=== PATIENT | female | born 1990 | race Caucasian/White ===

== ENCOUNTER → 2019-01-13 | Outpatient (CLI) | payer BC ==
--- NOTE | 2019-01-15 04:49 | MR ---
EXAMINATION TYPE: MR knee RT wo con DATE OF EXAM: 01/13/2019 COMPARISON: Outside radiographs 12/18/2018 HISTORY: 28-year-old female with right knee pain TECHNIQUE: Multiplanar, multisequence imaging of the right knee is performed without IV contrast. FINDINGS: ACL, PCL, MCL, and LCL complex appear intact. The medial meniscus shows obliquely oriented signal along the posterior horn extending to the junctio n with the meniscal body. Overall diminutive appearance to the medial meniscus probably congenital va riation and can be correlated clinically. There is also horizontally oriented signal within the body of the lateral meniscus, refer to coronal series 401 image 16. Tricompartmental articular cartilage volumes are maintained. There is focal moderate irregular cartil age loss along the posterior peripheral aspect of the lateral femoral condyle measuring 8 mm wide and 11 mm AP. Extensor mechanism is intact. Trace physiologic joint fluid. No sizable Espinoza's cyst. Normal popliteal artery anatomy in muscle bulk. No suspicious bone marrow replacement. IMPRESSION: 1. Oblique tear posterior horn medial meniscus extending to the junction with the meniscal body. Over all diminutive appearance to the medial meniscus may represent congenital variation as the patient re ports no prior surgery. Clinically correlate. 2. Prominent vascular pedicle versus horizontal cleavage tear involving the body of the lateral menis cus with the latter being favored as signal extends to the femoral articular surface on one image. 3. No cruciate/collateral ligament tear.. 4. Focal moderate irregular cartilage loss posterior peripheral aspect of the lateral compartment melinda ng the femoral condyle (8 x 11 mm).
== END | disposition home or self-care (01) ==
LOC: RADMRIMAIN 07:35
PROVIDERS: ATTEND Orthopaedic Surgery
DX: S83.241A Other tear of medial meniscus, current injury, right knee, initial encounter (principal); M94.8X6 Other specified disorders of cartilage, lower leg

== ENCOUNTER → 2019-03-12 | Outpatient (CLI) | payer BC ==
[2019-03-12 10:46] LABS: Potassium 4.6 mmol/L (3.5-5.1)
[2019-03-12 11:04] LABS: Basophils # (A) 0.1 k/uL (0-0.2); Basophils % (A) 2 %; Eosinophils # (A) 0.1 k/uL (0-0.7); Eosinophils % (A) 2 %; HCT 41.7 % (34.0-46.0); Lymphocytes # (A) 1.9 k/uL (1.0-4.8); Lymphocytes % (A) 34 %; MCH 31.7 pg (25.0-35.0); MCHC 33.6 g/dL (31.0-37.0); MCV 94.6 fL (80.0-100.0); Monocytes # (A) 0.4 k/uL (0-1.0); Monocytes % (A) 7 %; Neutrophils # (A) 2.9 k/uL (1.3-7.7); Neutrophils % (A) 52 %; Platelet Count 242 k/uL (150-450); RBC 4.41 m/uL (3.80-5.40); RDW 11.9 % (11.5-15.5); WBC 5.6 k/uL (3.8-10.6)
== END | disposition home or self-care (01) ==
LOC: LABPAT 09:54
PROVIDERS: ATTEND Orthopaedic Surgery
DX: Z01.812 Encounter for preprocedural laboratory examination (principal); M23.91 Unspecified internal derangement of right knee
CPT/HCPCS: 36415; 80051; 85025

== ENCOUNTER 2019-03-21 08:21 | Day surgery (SDC) | payer BC ==
[2019-03-18 15:17] VITALS: BMI 36.6
--- NOTE | 2019-03-20 11:17 | HP ---
HISTORY AND PHYSICAL CHIEF COMPLAINT: Right knee pain. 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 She notes anterior and lateral pain along with catching and giving way. She has tried anti-inflammatories and rest without much relief. She notes she is having daily symptoms that limit her. PAST MEDICAL HISTORY: Negative. PAST SURGICAL HISTORY: Negative. CURRENT MEDICATION: Ibuprofen she notes allergies to amoxicillin. FAMILY HISTORY: Significant for hypertension, diabetes, and cancer. SOCIAL HISTORY: Negative for current tobacco or alcohol use. REVIEW OF SYSTEMS: Sixteen point review of systems otherwise reviewed and is noncontributory. PHYSICAL EXAMINATION: On examination, the patient is approximately 5 foot 5, 220 pounds of endomorphic habitus. HEENT Exam is nonfocal. NECK: Supple. She has painless passive motion of the right hip. Straight leg raise is negative. Active motion right knee -8 to 125 degrees of flexion. She is tender about the lateral joint line. Collaterals are stable, Jackie is negative, Manuel's elicits lateral pain. Her distal neurovascular appears intact in the left lower extremity. MRI report 01/13/2019 of the right knee shows evidence of lateral femoral condyle chondral defect along with lateral meniscal tear and increased signal along posterior horn medial meniscus. IMPRESSION: Internal derangement, right knee with probable lateral meniscal tear. RECOMMENDATIONS: I talked to the patient at length regarding her condition and treatment options. At this point, she is having significant pain and mechanical symptoms after this acute injury. After a thorough discussion, she opts to proceed with surgery. We will plan to proceed with arthroscopic evaluation with probable partial lateral meniscectomy and possible lateral femoral chondrectomy. Will likely perform that as an outpatient procedure. Risks and benefits were discussed at length in layman's terms. MMODL / IJN: [id number] /
[~2019-03-21 08:21] MED LIST: DEXAMETHASONE SOD PHOSPHATE 10 MG/ML 1 ML VIAL IV ONE; LACTATED RINGERS 1,000 ML IV SCH; LIDOCAINE 1% 20 ML VIAL (10MG/ML) FOR IV START INTRADERMA PRN; MIDAZOLAM 2 MG/2 ML VIAL IV PRN; ONDANSETRON 4 MG/2 ML VIAL IVP ONE; SCOPOLAMINE 1.5MG/72HR PATCH TRANSDERM ONE
[2019-03-21] MEDS ORDERED: KETOROLAC 30 MG/ML 1 ML VIAL ONE (09:41)
[2019-03-21] MEDS ORDERED: DEXAMETHASONE SOD PHOSPHATE 4 MG/ML 1 ML VIAL ONE (09:41)
[2019-03-21] MEDS ORDERED: HYDROmorphone (PF) 1 MG/ML ONE (09:41)
[2019-03-21] MEDS ORDERED: PROPOFOL 10 MG/ML 20 ML VIAL IV ONE (09:41)
[2019-03-21] MEDS ORDERED: LIDOCAINE 1% INJ 10MG/ML (20 ML MDV) ONE (09:41)
[2019-03-21] MEDS ORDERED: MIDAZOLAM 2 MG/2 ML VIAL ONE (09:41)
[2019-03-21] MEDS ORDERED: ROPIVACAINE 5 MG/ML 30 ML VIAL ONE (09:41)
[2019-03-21] MEDS ORDERED: fentaNYL (PF) 50 MCG/ML 2 ML AMP ONE (09:41)
[2019-03-21] MEDS ORDERED: EPINEPHrine (PF) 1 ML in SODIUM CHLORIDE 0.9% IRRIGATIO 3,000 ML IRRIGATION ONE ×4 (10:07)
--- NOTE | 2019-03-21 10:41 | P.OP ---
Date of Procedure: 03/21/19 Preoperative Diagnosis: Right knee internal derangement Postoperative Diagnosis: Right knee posterior lateral meniscal tear/grade 3 chondral injury distal lateral portion lateral femoral condyle Procedure(s) Performed: Right knee arthroscopic partial lateral meniscectomy/lateral femoral chondrectomy/microfracture lateral femoral condyle Anesthesia: ROSYA Surgeon: Alexander Major Estimated Blood Loss (ml): 10 Pathology: none sent Condition: stable Disposition: PACU Indications for Procedure: The patient's a 28-year-old female who presents with persistent right knee pain and mechanical symptoms despite conservative measures. A discussion of the risks and benefits of operative intervention versus continued conservative measures was made with the patient. She opted proceed with surgery. Operative risks to include infection, neurovascular injury, development of blood clots, possible incomplete resolution of symptoms, possible worsening symptoms and need for subsequent procedures was discussed. Informed consent was obtained. Operative Findings: As below Description of Procedure: The patient was brought to the operating room, and after induction of general anesthesia examined the right knee. Collaterals were stable, Jackie was negative, and posterior drawer was negative. The right lower extremity was prepped and draped in a normal fashion. A lateral portal was made through a 5 mm vertical skin incision lateral to the patella tendon above the joint line. Diagnostic arthroscopy was performed. On inspection of the medial compartment no significant meniscal or cartilage pathology was noted. . On inspection of the notch, the anterior cruciate ligament appeared to be intact. On inspection of the lateral compartment, and undersurface tear involving the posterior horn of the lateral meniscus was noted. This was debrided back to stable base with a motorized shaver. The remainder of the lateral meniscus was stable and intact. A grade 3 chondral injury was noted involving the distal lateral portion of the lateral femoral condyle measuring 5 mm x 13 mm. There was a loose chondral fragment debrided back to stable base with motorized shaver. Microfracture was performed with a power pick breeching the subchondral surface down to the bone marrow elements.. On inspection of the patellofemoral articulation no significant cartilage pathology was noted. The gutters were clear debris. The knee was then thoroughly irrigated. The portals were closed with Steri-Strips. A sterile dressing was applied in addition to a compression stocking. The patient was awoken from general anesthesia and transferred to recovery room in good condition. Blood loss was estimated at 10 mL. No complications were incurred.
[2019-03-21 10:48] VITALS: TEMP 97.3
[2019-03-21] MEDS: HYDROmorphone 0.5 MG/0.5 ML SYRINGE IVP PRN ×2 (10:49→11:00)
--- NOTE | 2019-03-21 11:41 | P.ANPRN ---
Procedure Note - Anesthesia - Nerve Block Performed Right Adductor Canal Single Time Out Performed: Yes Date of Procedure: 03/21/19 Procedure Start Time: Procedure Stop Time: Location of Patient Procedure: PreOp Indication: Acute Post-Operative Pain, Requested by Surgeon Sedation Type: Sedate with meaningful contact maintained Preparation: Sterile Prep Position: Supine Needle Types: Pajunk Needle Gauge: 21 Ultrasound used to visualize needle placement: Yes Ultrasound used to observe medication spread: Yes Blood Aspirated: No Pain Paresthesia on Injection Noted: No Resistance on Injection: Normal Image Stored and Saved: Yes Events: Uneventful and Well Tolerated (ropi .5% 25cc plus dexamethasone 4mg)
[2019-03-21 11:46] VITALS: RESP 16
[2019-03-21 12:45] VITALS: BP 112/73; PULSE 73
== END 2019-03-21 13:12 | disposition home or self-care (01) ==
LOC: OR 08:21
PROVIDERS: ATTEND Orthopaedic Surgery
DX: S83.281A Other tear of lateral meniscus, current injury, right knee, initial encounter (principal); K21.9 Gastro-esophageal reflux disease without esophagitis; Z88.0 Allergy status to penicillin; Z79.1 Long term (current) use of non-steroidal anti-inflammatories (NSAID); Z98.890 Other specified postprocedural states; Z82.49 Family history of ischemic heart disease and other diseases of the circulatory system; Z83.3 Family history of diabetes mellitus; Z80.9 Family history of malignant neoplasm, unspecified; X58.XXXA Exposure to other specified factors, initial encounter
CPT/HCPCS: 29881; 29879; 64447; 81025; 76942; J2250; J1100 ×2; J0690; J2405; J0171; J2001; J3010; J1885; J1170 ×2; J2795; J2704

== ENCOUNTER → 2024-05-08 | Outpatient (CLI) | payer BC ==
--- NOTE | 2024-05-08 19:23 | MR ---
EXAMINATION TYPE: MR brain wo con DATE OF EXAM: 05/08/2024 7:00 PM COMPARISON: None . CLINICAL INDICATION: Female, 33 years old with history of R51.9 Headache; PHH, Headaches at night TECHNIQUE: Multi planar, multi sequence imaging was performed through the brain including: T1, T2, In version recovery, Diffusion weighted imaging, and gradient echo imaging. No gadolinium was given. FINDINGS: The milian-white junctions, ventricular system, basal cisterns appear unremarkable. . Midline structu res show no abnormality. Diffusion-weighted imaging shows no evidence of restricted diffusion. The gonzalez sceptibility weighted images do not reveal any evidence for micro-hemorrhage. The bone marrow signal is within normal limits. Paranasal sinuses and mastoid air cells: No significant paranasal sinus disease. Visualized orbits: Orbital contents are intact. IMPRESSION: 1. No evidence of intracranial mass or acute/subacute infarct. [facility], , 05/08/2024 7:21 PM
== END | disposition home or self-care (01) ==
LOC: RADMRIMAIN 18:15
PROVIDERS: ATTEND Family Medicine
DX: R51.9 Headache, unspecified (principal)
CPT/HCPCS: 70551